=== PATIENT | male | born 1985 | race Caucasian/White ===

== ENCOUNTER 2017-11-24 13:01 | Emergency (ER) | payer OTHER | END 2017-11-24 13:55 | disposition home or self-care (01) | LOC: FTE 13:01 | DX: S49.92XA Unspecified injury of left shoulder and upper arm, initial encounter (principal); X58.XXXA Exposure to other specified factors, initial encounter; Y92.832 Beach as the place of occurrence of the external cause | CPT/HCPCS: 99283 ==